=== PATIENT | male | born 1990 | race Two or more races ===

== ENCOUNTER 2016-12-28 05:35 | Emergency (ER) | payer OTHER ==
[2016-12-28 05:41] VITALS: RESP 16; TEMP 97.5
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
[2016-12-28 07:29] VITALS: BP 124/76; PULSE 76; O2SAT 98
== END 2016-12-28 07:20 | disposition home or self-care (01) ==
DX: S69.92XA Unspecified injury of left wrist, hand and finger(s), initial encounter (principal); S01.511A Laceration without foreign body of lip, initial encounter; V47.5XXA Car driver injured in collision with fixed or stationary object in traffic accident, initial encounter; Y92.410 Unspecified street and highway as the place of occurrence of the external cause; Y99.8 Other external cause status; Y93.89 Activity, other specified